=== PATIENT | female | born 1985 | race Caucasian/White ===

== ENCOUNTER 2024-10-19 08:45 | Day surgery (SDC) | payer OTHER ==
[~2024-10-19] VITALS: Ht 154.9 cm; Wt 113.6 kg
[~2024-10-19 08:45] MED LIST: SODIUM CHLORIDE 0.9% 1,000 ML ONE
[2024-10-19] MEDS ORDERED: PROPOFOL 1% 20 ML VIAL IVP ONE (08:46)
[2024-10-19] MEDS: SODIUM CHLORIDE 0.9% 1,000 ML IV ONE (09:57)
== END 2024-10-19 12:55 | disposition home or self-care (01) ==
LOC: SURGERY 08:45
PROVIDERS: ATTEND Internal Medicine
DX: R19.4 Change in bowel habit (principal); K57.30 Diverticulosis of large intestine without perforation or abscess without bleeding; K56.699 Other intestinal obstruction unspecified as to partial versus complete obstruction; K21.9 Gastro-esophageal reflux disease without esophagitis; K29.70 Gastritis, unspecified, without bleeding
CPT/HCPCS: 43239; 45378; 84703; 88305; 88342; C1769; J2704; J7030